=== PATIENT | female | born 1990 | race Caucasian/White ===

== ENCOUNTER → 2017-01-07 | Outpatient (CLI) | payer OTHER ==
[2017-01-09 21:06] LABS: AFP VALUE 22.6 ng/mL (.); GEST AGE BASED ON As provided (.); GEST AGE ON COLLECTION DATE 17.1 weeks (.); MULTIPLE GESTATION No (.); TEST RESULTS *Screen Negative* (.); WEIGHT 143 lbs (.)
== END | disposition home or self-care (01) ==
LOC: LAB 09:50
PROVIDERS: ATTEND Student in an Organized Health Care Education/Training Program
DX: Z34.02 Encounter for supervision of normal first pregnancy, second trimester (principal)
CPT/HCPCS: 36415; 82105

== ENCOUNTER 2017-05-03 15:09 | Outpatient (CLI) | payer OTHER | END 2017-05-03 15:50 | disposition home or self-care (01) | LOC: LDOP 15:09 | PROVIDERS: ATTEND Student in an Organized Health Care Education/Training Program | DX: O36.8190 Decreased fetal movements, unspecified trimester, not applicable or unspecified (principal); Z3A.00 Weeks of gestation of pregnancy not specified | CPT/HCPCS: 59025; 99201; G0463 ==

== ENCOUNTER 2017-06-13 09:35 | Outpatient (CLI) | payer OTHER ==
[~2017-06-13] VITALS: Ht 170.2 cm; Wt 78.6 kg
[2017-06-13 09:53] VITALS: BP 115/77
[2017-06-13 10:38] LABS: MICROSCOPIC INDICATED
== END 2017-06-13 13:45 | disposition home or self-care (01) ==
LOC: LDOP 09:35
PROVIDERS: ATTEND Student in an Organized Health Care Education/Training Program
DX: O62.9 Abnormality of forces of labor, unspecified (principal); Z3A.40 40 weeks gestation of pregnancy
CPT/HCPCS: 59025; 76819; 81001; 87086; 99211; G0463

== ENCOUNTER 2017-06-20 07:12 | Inpatient (IN) | payer OTHER ==
[~2017-06-20] VITALS: Ht 170.2 cm; Wt 79.0 kg
[2017-06-20 07:17] VITALS: BP 123/78
[2017-06-20] MEDS ORDERED: LIDOCAINE 1%, 20ML ONE (07:34)
[2017-06-20] MEDS ORDERED: NEWBORN KIT ONE (07:34)
[2017-06-20] MEDS ORDERED: OXYTOCIN 30U/ 0.9% NaCL 500ML 500 ML ONE (07:35)
[2017-06-20] MEDS ORDERED: MISOPROSTOL 200 MCG TABLET ONE (07:35)
[2017-06-20] MEDS ORDERED: LACTATED RINGERS 1,000 ML IV SCH (07:48)
[2017-06-20] MEDS ORDERED: OXYTOCIN 30U/ 0.9% NaCL 500ML 500 ML IV ONE (07:48)
[2017-06-20] MEDS ORDERED: D5%-LACTATED RINGERS 1,000 ML IV SCH (07:48)
[2017-06-20] MEDS ORDERED: SODIUM CHLORIDE FLUSH 10ML SYR IVF PRN (08:00)
[2017-06-20] MEDS ORDERED: FENTANYL PF 100 MCG/2ML IV PRN (08:00)
[2017-06-20] MEDS ORDERED: ONDANSETRON 2MG/ML, 2ML IVPush PRN (08:00)
[2017-06-20] MEDS ORDERED: METOCLOPRAMIDE 5 MG/ML, 2ML IVPush PRN (08:00)
[2017-06-20] MEDS ORDERED: SODIUM CITRATE/CITRIC ACID 30 ML UDC PO PRN (08:00)
[2017-06-20] MEDS ORDERED: FENTANYL PF 100 MCG/2ML IVPush PRN (08:00)
[2017-06-20 08:10] LABS: BASOPHILS # (AUTO) 0.02 x10^3/uL (0-0.1); BASOPHILS % (AUTO) 0 % (0-1); EOSINOPHILS # (AUTO) 0.02 x10^3/uL (0-0.4); EOSINOPHILS % (AUTO) 0 % (1-7); LYMPHOCYTES # (AUTO) 1.71 x10^3/uL (1-3.4); LYMPHOCYTES % (AUTO) 24 % (22-44); MD NO; MEAN CORPUSCULAR HEMOGLOBIN 28.7 pg (27.0-34.8); MEAN CORPUSCULAR HGB CONC 33.5 g/dL (32.4-35.8); MEAN CORPUSCULAR VOLUME 85.6 fL (80-100); MEAN PLATELET VOLUME 8.8 fL (7.4-10.4); MONOCYTES % (AUTO) 11 % (2-9); NEUTROPHILS % (AUTO) 64 % (42-75); PLATELET COUNT 239 x10^3/uL (130-400); RED BLOOD COUNT 4.48 x10^6/uL (3.82-5.3); RED CELL DISTRIBUTION WIDTH 13.9 % (9.6-15.2)
[2017-06-20] MEDS ORDERED: ONDANSETRON 2MG/ML, 2ML ONE (13:30)
[2017-06-20] MEDS ORDERED: OXYTOCIN 30U/ 0.9% NaCL 500ML 500 ML IV SCH (16:05)
[2017-06-20] MEDS ORDERED: IBUPROFEN 600 MG TABLET ONE (16:06)
[2017-06-20] MEDS: IBUPROFEN 600 MG TABLET PO PRN ×2 (16:15→22:59)
[2017-06-20] MEDS ORDERED: CARBOPROST TROMETHAMINE 250 MCG/ML, 1ML IM PRN (16:30)
[2017-06-20] MEDS ORDERED: MISOPROSTOL 200 MCG TABLET PR PRN (16:30)
[2017-06-20] MEDS ORDERED: OXYcodone/APAP 5/325MG TABLET PO PRN ×2 (16:30)
[2017-06-20] MEDS ORDERED: METOCLOPRAMIDE 5 MG/ML, 2ML IV PRN (16:30)
[2017-06-20] MEDS ORDERED: METHYLERGONOVINE 0.2 MG/ML IM PRN (16:30)
[2017-06-20] MEDS ORDERED: IBUPROFEN 800 MG TABLET PO PRN (16:30)
[2017-06-20] MEDS ORDERED: BISACODYL 10 MG SUPP PR PRN (16:30)
[2017-06-20] MEDS ORDERED: GLYCERIN ADULT SUPP PR PRN (16:30)
[2017-06-20] MEDS ORDERED: ONDANSETRON 2MG/ML, 2ML IV PRN (16:30)
[2017-06-20] MEDS ORDERED: ACETAMINOPHEN 325 MG TABLET PO PRN (16:30)
[2017-06-20] MEDS ORDERED: ACETAMINOPHEN 325 MG TABLET ONE (16:37)
[2017-06-20 17:55] VITALS: BP 111/74
[2017-06-20 19:35] VITALS: BP 107/71
[2017-06-20] MEDS: DOCUSATE 100 MG CAPSULE PO PRN (22:59)
[2017-06-21 00:12] VITALS: BP 110/74
[2017-06-21 04:57] VITALS: BP 112/73
[2017-06-21] MEDS: IBUPROFEN 600 MG TABLET PO PRN ×2 (05:00→12:00)
[2017-06-21 05:04] LABS: BASOPHILS # (AUTO) 0.02 x10^3/uL (0-0.1); BASOPHILS % (AUTO) 0 % (0-1); EOSINOPHILS % (AUTO) 0 % (1-7); LYMPHOCYTES # (AUTO) 2.15 x10^3/uL (1-3.4); LYMPHOCYTES % (AUTO) 19 % (22-44); MD NO; MEAN CORPUSCULAR HEMOGLOBIN 28.8 pg (27.0-34.8); MEAN CORPUSCULAR VOLUME 84.6 fL (80-100); MONOCYTES # (AUTO) 1.07 x10^3/uL (0.2-0.8); MONOCYTES % (AUTO) 9 % (2-9); NEUTROPHILS # (AUTO) 8.32 x10^3/uL (1.8-6.8); NEUTROPHILS % (AUTO) 72 % (42-75); PLATELET COUNT 206 x10^3/uL (130-400); RED BLOOD COUNT 3.89 x10^6/uL (3.82-5.3); RED CELL DISTRIBUTION WIDTH 13.9 % (9.6-15.2)
[2017-06-21 08:04] VITALS: BP 116/73
[2017-06-21] MEDS ORDERED: PRENATAL VIT/IRON/FA 1 EACH TABLET PO SCH (09:00)
[2017-06-21] MEDS: DOCUSATE 100 MG CAPSULE PO PRN (12:00)
[2017-06-21 12:59] VITALS: BP 100/65
[2017-06-21] MEDS ORDERED: IBUP-1222 PO (16:09)
== END 2017-06-21 18:09 | disposition home or self-care (01) | DRG 775 ==
LOC: LDOP 07:12 → LDIP 07:35 → 2NW 17:48
PROVIDERS: ADMIT Student in an Organized Health Care Education/Training Program; ATTEND Student in an Organized Health Care Education/Training Program
PROC: 10E0XZZ Delivery of Products of Conception, External Approach (ICD-10-PCS; principal; 2017-06-20)
PROC: 0KQM0ZZ Repair Perineum Muscle, Open Approach (ICD-10-PCS; 2017-06-20)
DX: O99.52 Diseases of the respiratory system complicating childbirth (principal); J45.909 Unspecified asthma, uncomplicated; O70.1 Second degree perineal laceration during delivery; Z37.0 Single live birth; Z3A.40 40 weeks gestation of pregnancy
CPT/HCPCS: 36415; 85025; 86850; 86900; J2405; J2590; J7120

== ENCOUNTER 2018-05-02 19:44 | Emergency (ER) | payer OTHER ==
[~2018-05-02] VITALS: Ht 170.2 cm; Wt 69.3 kg
[~2018-05-02 19:44] MED LIST: IBUP-1222 PO
[2018-05-02 20:01] VITALS: BP 113/76
[2018-05-02 20:28] LABS: BASOPHILS # (AUTO) 0.08 x10^3/uL (0-0.1); BASOPHILS % (AUTO) 1 % (0-1); EOSINOPHILS # (AUTO) 0.08 x10^3/uL (0-0.4); EOSINOPHILS % (AUTO) 1 % (1-7); LYMPHOCYTES # (AUTO) 2.68 x10^3/uL (1-3.4); LYMPHOCYTES % (AUTO) 32 % (22-44); MD NO; MEAN CORPUSCULAR HEMOGLOBIN 29.7 pg (27.0-34.8); MEAN CORPUSCULAR HGB CONC 34.2 g/dL (32.4-35.8); MEAN PLATELET VOLUME 7.8 fL (7.4-10.4); MONOCYTES % (AUTO) 7 % (2-9); NEUTROPHILS # (AUTO) 4.99 x10^3/uL (1.8-6.8); NEUTROPHILS % (AUTO) 59 % (42-75); PLATELET COUNT 298 x10^3/uL (130-400); RED BLOOD COUNT 4.55 x10^6/uL (3.82-5.3); RED CELL DISTRIBUTION WIDTH 13.1 % (9.6-15.2)
[2018-05-02 20:40] LABS: ALANINE AMINOTRANSFERASE 16 U/L (12-78); ALBUMIN 4.1 g/dL (3.4-5.0); ANION GAP 9 mmol/L (5-15); CALCIUM 8.8 mg/dL (8.5-10.1); CHLORIDE 107 mmol/L (98-107)
[2018-05-02 20:42] LABS: ALKALINE PHOSPHATASE 75 U/L (45-117); BILIRUBIN,TOTAL 0.3 mg/dL (0.2-1.0); CREATININE 0.91 mg/dL (0.55-1.02); TOTAL PROTEIN 8.1 g/dL (6.4-8.2)
[2018-05-02 21:22] LABS: HCG UR SG 1.034 (1.003-1.030)
[2018-05-02 21:24] LABS: MICROSCOPIC INDICATED
[2018-05-02 21:31] LABS: CULTURE INDICATED? YES
== END 2018-05-02 22:23 | disposition home or self-care (01) ==
LOC: ED 21:09
DX: R10.9 Unspecified abdominal pain (principal)
CPT/HCPCS: 36415; 80053; 81001; 81025; 85025; 87086; 99283

== ENCOUNTER 2018-07-23 21:41 | Emergency (ER) | payer OTHER ==
[~2018-07-23] VITALS: Ht 170.2 cm; Wt 66.6 kg
--- NOTE | 2018-07-23 22:46 | NUR ---
pt to room from lobby
[2018-07-23 23:26] LABS: BASOPHILS # (AUTO) 0.01 x10^3/uL (0-0.1); BASOPHILS % (AUTO) 0 % (0-1); EOSINOPHILS % (AUTO) 0 % (1-7); LYMPHOCYTES # (AUTO) 0.58 x10^3/uL (1-3.4); LYMPHOCYTES % (AUTO) 7 % (22-44); MD NO; MEAN CORPUSCULAR HEMOGLOBIN 29.2 pg (27.0-34.8); MEAN CORPUSCULAR HGB CONC 34.5 g/dL (32.4-35.8); MEAN CORPUSCULAR VOLUME 84.8 fL (80-100); MEAN PLATELET VOLUME 7.6 fL (7.4-10.4); MONOCYTES # (AUTO) 0.32 x10^3/uL (0.2-0.8); MONOCYTES % (AUTO) 4 % (2-9); NEUTROPHILS % (AUTO) 90 % (42-75); PLATELET COUNT 267 x10^3/uL (130-400); RED BLOOD COUNT 4.66 x10^6/uL (3.82-5.3); RED CELL DISTRIBUTION WIDTH 12.9 % (9.6-15.2)
[2018-07-23] MEDS ORDERED: KETOROLAC 30 MG/1 ML IVPush ONE (23:30)
[2018-07-23] MEDS ORDERED: PROMETHAZINE 25 MG/ML, 1ML IM ONE (23:30)
[2018-07-23] MEDS ORDERED: METOCLOPRAMIDE 5 MG/ML, 2ML IVPush ONE (23:30)
[2018-07-23] MEDS ORDERED: SODIUM CHLORIDE 0.9% 1,000ML IVBOLUS ONE (23:30)
[2018-07-23] MEDS ORDERED: SODIUM CHLORIDE FLUSH 10ML SYR IVF ONE (23:30)
--- NOTE | 2018-07-23 23:35 | NUR ---
IV STARTED, BOLUS INFUSING
[2018-07-23 23:37] LABS: ALBUMIN 3.5 g/dL (3.4-5.0); ANION GAP 8 mmol/L (5-15); CALCIUM 8.2 mg/dL (8.5-10.1); CHLORIDE 103 mmol/L (98-107); CREATININE 0.96 mg/dL (0.55-1.02)
[2018-07-23] MEDS ORDERED: METOCLOPRAMIDE 5 MG/ML, 2ML ONE (23:39)
[2018-07-23] MEDS ORDERED: KETOROLAC 30 MG/1 ML ONE (23:39)
[2018-07-23] MEDS ORDERED: PROMETHAZINE 25 MG/ML, 1ML ONE (23:39)
[2018-07-23 23:41] LABS: RAPID INFLUENZA A Negative (Negative); RAPID INFLUENZA B Negative (Negative)
[2018-07-24] MEDS ORDERED: POTASSIUM CHLORIDE 20 MEQ TAB.ER.PRT PO ONE (00:30)
[2018-07-24 00:34] VITALS: BP 105/66
--- NOTE | 2018-07-24 00:35 | NUR ---
PT STATES FEELING BETTER, FEVER GONE, AWAITING DISPO
[2018-07-24] MEDS ORDERED: POTASSIUM CHLORIDE 20 MEQ TAB.ER.PRT ONE (00:55)
[2018-07-24 01:00] LABS: MICROSCOPIC INDICATED
[2018-07-24 01:01] LABS: HCG UR SG 1.028 (1.003-1.030)
[2018-07-24 01:24] LABS: CULTURE INDICATED? YES
== END 2018-07-24 01:26 | disposition home or self-care (01) ==
LOC: ED 23:00
DX: E86.0 Dehydration (principal); B34.9 Viral infection, unspecified; R11.2 Nausea with vomiting, unspecified
CPT/HCPCS: 36415; 71046; 80048; 81001; 81025; 82040; 85025; 87086; 87400; 96361; 96372; 96374; 96375; 99284; J1885; J2550; J2765; J7030

== ENCOUNTER 2019-12-05 08:04 | Emergency (ER) | payer OTHER ==
[~2019-12-05] VITALS: Ht 170.2 cm; Wt 71.7 kg
[2019-12-05 08:06] VITALS: BP 120/80
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
== END 2019-12-05 11:16 | disposition home or self-care (01) ==
LOC: ED 08:19
DX: S60.222A Contusion of left hand, initial encounter (principal); W01.198A Fall on same level from slipping, tripping and stumbling with subsequent striking against other object, initial encounter; Y93.89 Activity, other specified; Y92.098 Other place in other non-institutional residence as the place of occurrence of the external cause; Y99.8 Other external cause status
CPT/HCPCS: 29125; 36415; 84703; 99284

== ENCOUNTER 2020-01-18 20:17 | Emergency (ER) | payer OTHER ==
[~2020-01-18] VITALS: Ht 170.2 cm; Wt 71.8 kg
[2020-01-18 20:20] VITALS: BP 132/77
--- NOTE | 2020-01-18 20:46 | NUR ---
REPORTS VAGINAL BLEEDING BRIGHT RED BLOOD SINCE 7PM TONIGHT, CURRENTLY 8 WEEKS .
--- NOTE | 2020-01-18 21:33 | NUR ---
CMP AND CBC CANCELLED PER LAB NEEDS REDRAW DUE TO HEMOLYZED BLOOD.
[2020-01-18 21:59] LABS: BASOPHILS # (AUTO) 0.02 x10^3/uL (0-0.1); BASOPHILS % (AUTO) 0 % (0-1); EOSINOPHILS % (AUTO) 1 % (1-7); LYMPHOCYTES # (AUTO) 2.38 x10^3/uL (1-3.4); LYMPHOCYTES % (AUTO) 33 % (22-44); MD NO; MEAN CORPUSCULAR HEMOGLOBIN 30.1 pg (27.0-34.8); MEAN CORPUSCULAR VOLUME 88.4 fL (80-100); MEAN PLATELET VOLUME 8.2 fL (7.4-10.4); MONOCYTES # (AUTO) 0.61 x10^3/uL (0.2-0.8); MONOCYTES % (AUTO) 8 % (2-9); NEUTROPHILS # (AUTO) 4.21 x10^3/uL (1.8-6.8); NEUTROPHILS % (AUTO) 58 % (42-75); PLATELET COUNT 250 x10^3/uL (130-400); RED BLOOD COUNT 4.28 x10^6/uL (3.82-5.3); RED CELL DISTRIBUTION WIDTH 12.8 % (9.6-15.2)
[2020-01-18 22:12] LABS: ALANINE AMINOTRANSFERASE 14 U/L (12-78); ALBUMIN 3.3 g/dL (3.4-5.0); ANION GAP 6 mmol/L (5-15); CALCIUM 8.8 mg/dL (8.5-10.1); CHLORIDE 109 mmol/L (98-107)
[2020-01-18 22:29] LABS: ALKALINE PHOSPHATASE 40 U/L (45-117); BILIRUBIN,TOTAL 0.2 mg/dL (0.2-1.0); TOTAL PROTEIN 7.4 g/dL (6.4-8.2)
--- NOTE | 2020-01-18 22:39 | NUR ---
PT IN ULTRASOUND.
--- NOTE | 2020-01-18 22:59 | NUR ---
REPORT GIVEN TO AMBROCIO MARTÍNEZ.
--- NOTE | 2020-01-18 23:20 | NUR ---
RECEIVED REPORT. PATIENT RETURNED FROM ULTRASOUND. MONITORS REPLACED. SHE DENIES ANY COMPLAINTS OR REQUEST AT THIS TIME.
== END 2020-01-19 00:03 | disposition home or self-care (01) ==
LOC: ED 20:38
DX: O20.0 Threatened abortion (principal); Z3A.08 8 weeks gestation of pregnancy
CPT/HCPCS: 36415; 76801; 80053; 84702; 85025; 86901; 99284

== ENCOUNTER → 2020-02-03 | Outpatient (CLI) | payer OTHER ==
[2020-02-03 12:12] LABS: BASOPHILS # (AUTO) 0.02 x10^3/uL (0-0.1); BASOPHILS % (AUTO) 0 % (0-1); EOSINOPHILS # (AUTO) 0.06 x10^3/uL (0-0.4); EOSINOPHILS % (AUTO) 1 % (1-7); LYMPHOCYTES # (AUTO) 2.38 x10^3/uL (1-3.4); LYMPHOCYTES % (AUTO) 32 % (22-44); MD NO; MEAN CORPUSCULAR HEMOGLOBIN 29.4 pg (27.0-34.8); MEAN CORPUSCULAR HGB CONC 32.8 g/dL (32.4-35.8); MEAN CORPUSCULAR VOLUME 89.5 fL (80-100); MEAN PLATELET VOLUME 8.2 fL (7.4-10.4); MONOCYTES # (AUTO) 0.56 x10^3/uL (0.2-0.8); MONOCYTES % (AUTO) 8 % (2-9); NEUTROPHILS # (AUTO) 4.43 x10^3/uL (1.8-6.8); NEUTROPHILS % (AUTO) 60 % (42-75); PLATELET COUNT 267 x10^3/uL (130-400); RED BLOOD COUNT 4.47 x10^6/uL (3.82-5.3); RED CELL DISTRIBUTION WIDTH 12.2 % (9.6-15.2)
== END | disposition home or self-care (01) ==
LOC: LAB 11:33
PROVIDERS: ATTEND Student in an Organized Health Care Education/Training Program
DX: Z34.81 Encounter for supervision of other normal pregnancy, first trimester (principal)
CPT/HCPCS: 36415; 85025; 86592; 86762; 86850; 86900; 87086; 87340; 87806; G0475

== ENCOUNTER 2020-05-22 18:38 | Outpatient (CLI) | payer OTHER ==
[~2020-05-22] VITALS: Ht 170.2 cm; Wt 77.2 kg
[2020-05-22 19:00] VITALS: BP 119/66
[2020-05-22 19:21] LABS: MICROSCOPIC NOT IND
== END 2020-05-22 20:40 | disposition home or self-care (01) ==
LOC: LDOP 18:38
PROVIDERS: ATTEND Student in an Organized Health Care Education/Training Program
DX: O26.892 Other specified pregnancy related conditions, second trimester (principal); R10.9 Unspecified abdominal pain; Z3A.27 27 weeks gestation of pregnancy
CPT/HCPCS: 59025; 81003; 87086

== ENCOUNTER 2020-08-21 22:47 | Inpatient (IN) | payer OTHER ==
[~2020-08-21] VITALS: Ht 170.2 cm; Wt 83.2 kg
[2020-08-21 23:21] VITALS: BP 114/56
[2020-08-21] MEDS ORDERED: NEWBORN KIT ONE (23:21)
[2020-08-21] MEDS ORDERED: OXYTOCIN 30U/ 0.9% NaCL 500ML 500 ML IV ONE (23:30)
[2020-08-21] MEDS ORDERED: LACTATED RINGERS 1,000 ML IV SCH (23:30)
[2020-08-21] MEDS ORDERED: D5%-LACTATED RINGERS 1,000 ML IV SCH (23:30)
[2020-08-21] MEDS ORDERED: ONDANSETRON 2MG/ML, 2ML IVPush PRN (23:30)
[2020-08-21] MEDS ORDERED: METOCLOPRAMIDE 5 MG/ML, 2ML IVPush PRN (23:30)
[2020-08-21] MEDS ORDERED: SODIUM CITRATE/CITRIC ACID 30 ML UDC PO PRN (23:30)
[2020-08-21] MEDS ORDERED: FENTANYL PF 100 MCG/2ML IV PRN (23:30)
[2020-08-21] MEDS ORDERED: OXYTOCIN 30U/ 0.9% NaCL 500ML 500 ML IV PRN (23:30)
[2020-08-21] MEDS ORDERED: TERBUTALINE 1 MG/ML, 1ML SQ PRN (23:30)
[2020-08-21] MEDS ORDERED: TERBUTALINE 1 MG/ML, 1ML IVPush PRN (23:30)
[2020-08-21 23:42] LABS: BASOPHILS % (AUTO) 0 % (0-1); EOSINOPHILS % (AUTO) 0 % (1-7); LYMPHOCYTES % (AUTO) 31 % (22-44); MD NO; MEAN CORPUSCULAR HGB CONC 34.6 g/dL (32.4-35.8); MEAN PLATELET VOLUME 9.2 fL (7.4-10.4); MONOCYTES % (AUTO) 13 % (2-9); NEUTROPHILS % (AUTO) 55 % (42-75); PLATELET COUNT 209 x10^3/uL (130-400); RED CELL DISTRIBUTION WIDTH 13.6 % (9.6-15.2)
[2020-08-21] MEDS ORDERED: LIDOCAINE 1%, 20ML ONE (23:51)
[2020-08-21] MEDS ORDERED: MISOPROSTOL 200 MCG TABLET ONE (23:51)
[2020-08-22] MEDS: FENTANYL PF 100 MCG/2ML IVPush PRN ×2 (01:43→02:45)
[2020-08-22] MEDS ORDERED: ACETAMINOPHEN 325 MG TABLET PO PRN ×2 (04:00)
[2020-08-22] MEDS ORDERED: METOCLOPRAMIDE 5 MG/ML, 2ML IV PRN (04:00)
[2020-08-22] MEDS ORDERED: OXYcodone/APAP 5/325MG TABLET PO PRN ×2 (04:00)
[2020-08-22] MEDS ORDERED: DIPH,PERTUSS(ACELL),TET VAC/PF NC IM-VACC PRN (04:00)
[2020-08-22] MEDS ORDERED: SIMETHICONE 80 MG CHEW TAB PO PRN (04:00)
[2020-08-22] MEDS ORDERED: ONDANSETRON 2MG/ML, 2ML IV PRN (04:00)
[2020-08-22] MEDS ORDERED: METHYLERGONOVINE 0.2 MG/ML IM PRN (04:00)
[2020-08-22] MEDS ORDERED: CALCIUM CARBONATE 500 MG TAB.CHEW PO PRN (04:00)
[2020-08-22] MEDS ORDERED: MAGNESIUM HYDROXIDE 8%, 30ML UDC PO PRN (04:00)
[2020-08-22] MEDS ORDERED: MISOPROSTOL 200 MCG TABLET PO PRN (04:00)
[2020-08-22] MEDS: IBUPROFEN 600 MG TABLET PO PRN ×4 (04:27→22:32)
[2020-08-22 07:35] VITALS: BP 102/69
[2020-08-22] MEDS: OXYTOCIN 30U/ 0.9% NaCL 500ML 500 ML IV SCH ×2 (10:55→14:00)
[2020-08-22 11:15] VITALS: BP 107/66
[2020-08-22 12:29] LABS: BASOPHILS % (AUTO) 0 % (0-1); EOSINOPHILS % (AUTO) 0 % (1-7); LYMPHOCYTES % (AUTO) 15 % (22-44); MEAN CORPUSCULAR HEMOGLOBIN 29.4 pg (27.0-34.8); MEAN CORPUSCULAR HGB CONC 35.2 g/dL (32.4-35.8); MEAN PLATELET VOLUME 8.6 fL (7.4-10.4); MONOCYTES % (AUTO) 10 % (2-9); NEUTROPHILS % (AUTO) 75 % (42-75); PLATELET COUNT 181 x10^3/uL (130-400); RED BLOOD COUNT 3.44 x10^6/uL (3.82-5.3); RED CELL DISTRIBUTION WIDTH 13.9 % (9.6-15.2)
[2020-08-22 12:32] LABS: MD NO
[2020-08-22] MEDS: PRENATAL VIT/IRON/FA 1 EACH TABLET PO SCH (12:58)
[2020-08-22 15:17] VITALS: BP 104/64
[2020-08-22 21:15] VITALS: BP 97/64
[2020-08-22] MEDS: DOCUSATE 100 MG CAPSULE PO PRN (22:32)
[2020-08-23] MEDS: OXYTOCIN 30U/ 0.9% NaCL 500ML 500 ML IV SCH
[2020-08-23 00:25] VITALS: BP 100/64
[2020-08-23] MEDS: IBUPROFEN 600 MG TABLET PO PRN (04:51)
[2020-08-23 04:54] VITALS: BP 102/67
[2020-08-23 07:43] VITALS: BP 99/65
[2020-08-23] MEDS ORDERED: IBUP-1222 PO (08:32)
[2020-08-23] MEDS: PRENATAL VIT/IRON/FA 1 EACH TABLET PO SCH (10:00)
[2020-08-23] MEDS: DOCUSATE 100 MG CAPSULE PO PRN (10:00)
== END 2020-08-23 10:40 | disposition home or self-care (01) | DRG 807 ==
LOC: LDOP 22:47 → LDIP 23:04 → 2NW 08-22 06:45
PROVIDERS: ADMIT Student in an Organized Health Care Education/Training Program; ATTEND Student in an Organized Health Care Education/Training Program
PROC: 10E0XZZ Delivery of Products of Conception, External Approach (ICD-10-PCS; principal; 2020-08-22)
PROC: 0KQM0ZZ Repair Perineum Muscle, Open Approach (ICD-10-PCS; 2020-08-22)
DX: O70.1 Second degree perineal laceration during delivery (principal); Z37.0 Single live birth; Z20.822 Contact with and (suspected) exposure to COVID-19; Z3A.39 39 weeks gestation of pregnancy; Z88.5 Allergy status to narcotic agent
CPT/HCPCS: 36415; 85025; 86592; 86900; 87635; G0378; J2405; J3010